=== PATIENT | female | born 1975 | race Caucasian/White ===

== ENCOUNTER 2016-10-17 18:38 | Emergency (ER) | payer BC ==
[2016-10-17 19:17] VITALS: BP 112/62
[2016-10-17] MEDS ORDERED: ALPRAZolam TAB* 0.5 MG PO ONE (21:21)
--- NOTE | 2016-10-17 21:28 | ED ---
Medical Screening - HPI Summary HPI Summary: 41 female presents today in need of prescription refill. Patient states she lived in [place] for the past 10 years and just moved back after a recent divorce and job relocation. Patient states she has severe anxiety and stress after losing custody of her child and divorce issues. She uses the Xanax to sleep and just ran out of the medication yesterday 10/16/16. She was unable to sleep last night and is very exhausted. Patient states she takes .5mg bid of Xanax at night to help her sleep. She also has a history of SVT and when she is severely stressed or anxious it triggers attacks. Her last episode of SVT was in 2014 however, she is also out of her Atenolol and would like more. She called around to get the soonest PCP appointment and could not get into [facility] until October. Patient is aware that this medication is addictive and she should discuss alternative treatments for her anxiety/stress and sleep aides. Denies withdrawal symptoms at this time, tremors, psychosis, chest pain, SOB, difficulty breathing, palpitations,nausea, vomiting and headache. Does not use alcohol or tobacco. No other significant PMHx. - History of Current Complaint Chief Complaint: EDPrescriptionNeeded Stated Complaint: MEDICATION REQUEST Onset/Duration: Started Days Ago - ran out of her Xanax yesterday 10/16/15. Ran out of Atenolol months ago. Severity: mild Associated Signs and Symptoms: Negative PMH/Surg Hx/FS Hx/Imm Hx Endocrine/Hematology History: Denies: Hx Diabetes Cardiovascular History: Reports: Hx Supraventricular Ventricular Tachycardia Denies: Hx Atrial Fibrillation, Hx Hypertension Respiratory History: Denies: Hx Asthma Infectious Disease History: Yes Infectious Disease History: Denies: Traveled Outside the [place] in Last 30 Days - Family History Known Family History: Positive: None - Social History Occupation: Employed Full-time Alcohol Use: None Substance Use Type: Reports: None Smoking Status (MU): Never Smoked Tobacco Review of Systems Constitutional: Negative Eyes: Negative ENT: Negative Cardiovascular: Negative Respiratory: Negative Gastrointestinal: Negative Genitourinary: Negative Musculoskeletal: Negative Skin: Negative Neurological: Negative Positive: Anxious, Depressed All Other Systems Reviewed And Are Negative: Yes Physical Exam Triage Information Reviewed: Yes Vital Signs On Initial Exam: Initial Vitals Temp Pulse Resp BP Pulse Ox 98.7 F 88 16 112/62 100 10/17/16 19:11 10/17/16 19:11 10/17/16 19:11 10/17/16 19:11 10/17/16 19:11 Vital Signs Reviewed: Yes Appearance: Positive: Well-Appearing, No Pain Distress, Well-Nourished Skin: Positive: Warm, Skin Color Reflects Adequate Perfusion Head/Face: Positive: Normal Head/Face Inspection Eyes: Positive: Normal Neck: Positive: Supple, Nontender Respiratory/Lung Sounds: Positive: Clear to Auscultation, Breath Sounds Present Cardiovascular: Positive: Normal, RRR, Pulses are Symmetrical in both Upper and Lower Extremities Musculoskeletal: Positive: Normal Neurological: Positive: Normal - no signs of tremors or withdrawal symptoms, Sensory/Motor Intact, Alert, Oriented to Person Place, Time, CN Intact II-III Psychiatric: Positive: Affect/Mood Appropriate, Anxious, Depressed Diagnostics - Vital Signs Vital Signs Temp Pulse Resp BP Pulse Ox 10/17/16 19:11 98.7 F 88 16 112/62 100 - Laboratory Lab Statement: Any lab studies that have been ordered have been reviewed, and results considered in the medical decision making process. Course/Dx - Course Course Of Treatment: Patient was given Xanax medication in ED to take at home tonight due to pharmacies being closed. She was given a prescription refill for Xanax and Atenolol up until her 10/25/16 appointment with a new PCP at [facility]. She was told the adverse effects of the medication and that it is addictive. Advised to discuss with PCP about alternative measures and tapering her xanax to help cope with anxiety, stress, and sleeping. Also aware she should establish with plywood matcher in the area for her SVT. - Diagnoses Provider Diagnoses: Anxiety, Stress, Prescription refill - Physician Notifications Discussed Care Of Patient With: Discussed care and evaluated by Dr Bach Discharge - Discharge Plan Condition: Good Disposition: HOME Prescriptions: ALPRAZolam TAB* [Xanax TAB*] 0.5 mg PO BID PRN #16 tab MDD 1.0 mg PRN Reason: Sleep Atenolol TAB* [Tenormin TAB* 25 MG] 25 mg PO DAILY #10 tab Patient Education Materials: Anxiety (ED), Alprazolam (By mouth) Referrals: [facility] [place] [facility]FERR[facility] [Outside] Tavares Dave MD [Medical Doctor] - Additional Instructions: Please discuss taking prescriptions with a PCP during your appointment on October 25. Do not drive or drink alcohol when taking xanax as it does cause impairment. This medication is addictive only use as needed to help with sleep.
== END 2016-10-17 21:41 | disposition home or self-care (01) ==
LOC: ED 18:38
DX: F41.9 Anxiety disorder, unspecified (principal); F43.9 Reaction to severe stress, unspecified; Z76.0 Encounter for issue of repeat prescription
CPT/HCPCS: 99282; A9270-GY